=== PATIENT | male | born 1955 | race Caucasian/White ===

== ENCOUNTER 2017-06-05 20:05 | Emergency (ER) | payer BC ==
[2017-06-05 20:22] VITALS: BP 139/68
[2017-06-05] MEDS ORDERED: Acetaminophen/HYDROcodone 325-5 MG Tab PO ONE (21:28)
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
== END 2017-06-05 21:40 | disposition home or self-care (01) ==
LOC: FB.ED 20:05
DX: S43.101A Unspecified dislocation of right acromioclavicular joint, initial encounter (principal); Z87.891 Personal history of nicotine dependence; V19.9XXA Pedal cyclist (driver) (passenger) injured in unspecified traffic accident, initial encounter
CPT/HCPCS: 73030; 99283; A9270

== ENCOUNTER 2025-06-03 06:43 | Day surgery (SDC) | payer MEDICARE, OTHER ==
[2025-06-03] MEDS ORDERED: Propofol 200 MG/20 ML SDV IV ONE (06:44)
[2025-06-03] MEDS ORDERED: Sodium Chloride 0.9% 10 ML Syringe FLUSH PRN (06:45)
[2025-06-03] MEDS: Lactated Ringers 1,000 ML IV SCH (09:02)
[2025-06-03 10:09] VITALS: BP 113/66; PULSE 59
== END 2025-06-03 09:45 | disposition home or self-care (01) ==
LOC: FB.SDS 06:43
PROVIDERS: ATTEND Surgery
DX: Z12.11 Encounter for screening for malignant neoplasm of colon (principal); E78.5 Hyperlipidemia, unspecified; Z86.0101 Personal history of adenomatous and serrated colon polyps; Z87.891 Personal history of nicotine dependence
CPT/HCPCS: A9270; G0105; J2003; J2704; J7120; 00811; 99100